=== PATIENT | male | born 1980 | race Caucasian/White ===

== ENCOUNTER 2019-05-19 16:18 | Outpatient (CLI) | payer BC, SELFPAY ==
[2019-05-19 16:53] LABS: Influenza Control Positive
== END 2019-05-19 16:19 | disposition home or self-care (01) ==
LOC: ANHLAB 16:20
PROVIDERS: Visit Provider Physician Assistant
DX: R68.89 Other general symptoms and signs (principal)
CPT/HCPCS: 87804

== ENCOUNTER 2019-12-22 11:06 | Outpatient (CLI) | payer BC, SELFPAY ==
--- NOTE | ~2019-12-22 | XR_ITS ---
XR lumbar spine 6V w bending 12/22/2019 11:41 Indication: Low back pain Procedure: 7 views of the lumbar spine including flexion/extension views Comparison: No prior studies for comparison. Findings: No significant alteration of alignment with flexion/extension. There is mild disc narrowing at L5-S1. Normal lumbar alignment. No evidence for spondylolisthesis. No acute fracture or traumatic malalignment. Impression: 1: Mild lumbar spondylosis. Reviewed, dictated and finalized at location A. Impression: 1: Mild lumbar spondylosis.
--- NOTE | ~2019-12-22 | XR_ITS ---
XR knee LT 3V 12/22/2019 11:40 INDICATION: Left knee pain PROCEDURE: 3 views left knee COMPARISON: No prior studies for comparison. FINDINGS: Fracture, dislocation or subluxation is not identified. No significant joint effusion. The soft tissues appear within normal limits. No foreign bodies are identified. IMPRESSION: 1: NO ACUTE BONE OR JOINT ABNORMALITY IDENTIFIED. Reviewed, dictated and finalized at location A.
== END 2019-12-22 11:07 | disposition home or self-care (01) ==
PROVIDERS: PCP Physician Assistant; Visit Provider Physician Assistant
DX: M25.562 Pain in left knee (principal); M47.896 Other spondylosis, lumbar region
CPT/HCPCS: 72114; 73562

== ENCOUNTER 2020-11-19 18:14 | Emergency (ER) | payer BC, SELFPAY ==
[2020-11-19 18:24] VITALS: BP 135/92; PULSE 95; RESP 18; TEMP 36.9; O2SAT 97
--- NOTE | 2020-11-19 18:28 | ED.GENADULT ---
HPI - General Adult General Chief complaint: Unspecified Stated complaint: poss covid Time Seen by Provider: 11/19/20 18:28 Source: patient and RN notes reviewed Mode of arrival: ambulatory Limitations: no limitations History of Present Illness HPI narrative: 40-year-old male presents with concern for secondhand Covid exposure. Reports he was exposed to his girlfriend whose grandmother tested positive for Covid. He reports the girlfriend does not have symptoms, he was concern for the possible exposure because he lives with his mother who is currently ill. He denies rhinorrhea, nasal congestion, sore throat, ear pain, headache, body aches, chills, fever, cough, loss of sense of taste or smell. MD complaint: Covid exposure Related Data Allergies Allergy/AdvReac Type Severity Reaction Status Date / Time No Known Allergies Allergy Mild Verified 11/19/20 18:29 Review of Systems Review of Systems: CONSTITUTIONAL: Denies malaise, chills, sweats, or fever. EYES: Denies visual changes, redness, or discharge. ENT: Denies rhinorrhea, congestion, sinus pain, otalgia or sore throat. CARDIOVASCULAR: Denies chest pain, palpitations, or edema. RESPIRATORY: Denies cough or dyspnea. GASTROINTESTINAL: Denies abdominal pain, nausea, vomiting, diarrhea SKIN: Denies rash or itching. MUSCULOSKELETAL: Denies myalgia. NEUROLOGIC: Denies headache. All systems reviewed & are unremarkable except as noted in HPI and below PMFSH Family History Family History Mother Family history of thyroid disease Father Family history of heart disease in male family member before age 55 Sibling Family history of heart disease in male family member before age 55 Other Family history of cardiovascular disease Social History Social History Smoking packs per day: 1 Smoking cigarettes per day: 20.0 Years smoked: 22 Smoking pack-years: 22.00 Smoking status: Current every day smoker Tobacco type: cigarettes Second hand tobacco smoke exposure: Yes Alcohol intake: current Substance use: never Comments At time of signature, agree with nursing past medical, surgical, social and family history. There is no relevant family history pertinent to the presenting complaint Exam Narrative: GENERAL: Well-appearing, well-nourished, and in no acute distress. HEAD: Normocephalic EYES: PERRLA, conjunctivae clear ENT: Nares clear, turbinates pink, no rhinorrhea or epistaxis. Mucous membranes moist. TM pearly mora with sharp light reflex bilaterally; no tragal tenderness. Oropharynx without erythema or lesions. Tonsils not enlarged and without exudate. NECK: Supple. CHEST: No respiratory distress. Clear to auscultation. No bony deformities, no asymmetry. Speaks in full sentences. HEART: Regular rate and rhythm. No murmur heard. SKIN: Warm, dry, no rash. NEURO: Alert and oriented x3. PSYCH: Normal mood and affect Course Course Emergency Course: Patient is aware of diagnosis, understands and agrees to treatment plan. Anticipatory guidance given. Patient agrees to follow-up as directed and is aware of reasons to seek care at the emergency department. Portions of this record may have been created with voice recognition software Vital Signs Vital signs: Vital Signs Temperature 98.5 F 11/19/20 18:24 Pulse Rate 95 11/19/20 18:24 Respiratory Rate 18 11/19/20 18:24 Blood Pressure 135/92 H 11/19/20 18:24 Pulse Oximetry 97 11/19/20 18:24 Temperature 98.5 F 11/19/20 18:24 Pulse Rate 95 11/19/20 18:24 Respiratory Rate 18 11/19/20 18:24 Blood Pressure 135/92 H 11/19/20 18:24 Pulse Oximetry 97 11/19/20 18:24 Reviewed. Medical Decision Making MDM Narrative Medical decision making narrative: Exam findings show no acute concerns or changes; patient is non-toxic appearing and is in no distress. Patient is appropriate
== END 2020-11-19 18:44 | disposition home or self-care (01) ==
PROVIDERS: Emergency Provider Nurse Practitioner; PCP Physician Assistant
DX: Z20.822 Contact with and (suspected) exposure to COVID-19 (principal); F17.210 Nicotine dependence, cigarettes, uncomplicated
CPT/HCPCS: 99211; G0463

== ENCOUNTER → 2020-11-20 08:18 | Outpatient (CLI) | payer BC, SELFPAY ==
[2020-11-21 01:23] LABS: SARS-CoV-2 RNA PCR Negative
== END ==
PROVIDERS: PCP Physician Assistant; Visit Provider Nurse Practitioner
DX: R68.89 Other general symptoms and signs (principal); Z20.822 Contact with and (suspected) exposure to COVID-19
CPT/HCPCS: C9803; U0003; U0005

== ENCOUNTER 2022-03-13 15:48 | Emergency (ER) | payer BC, SELFPAY ==
--- NOTE | 2022-03-13 15:56 | PC.NURSE ---
patient eloped from triage area. rn turned away from desk to put chart in rack and patient went out front door
== END 2022-03-13 15:56 | disposition left against medical advice (07) ==
PROVIDERS: PCP Physician Assistant
DX: Z53.21 Procedure and treatment not carried out due to patient leaving prior to being seen by health care provider (principal)
CPT/HCPCS: 99199

== ENCOUNTER 2022-04-09 16:19 | Emergency (ER) | payer BC, SELFPAY ==
[2022-04-09 16:27] VITALS: BP 142/95; PULSE 79; RESP 18; TEMP 36.9; O2SAT 100
--- NOTE | 2022-04-09 16:34 | ED.URI ---
HPI - URI/Sore Throat General Chief Complaint: Upper Respiratory Infection Stated Complaint: Headache,Sore Throat,Congestion Time Seen by Provider: 04/09/22 16:35 Source: patient and RN notes reviewed Mode of arrival: ambulatory Limitations: no limitations History of Present Illness HPI Narrative: 41 y/o male presented for c/o RAMIREZ, cough, congestion, and sweats for 3 days. Denies sick contacts. Taking Tylenol for symptoms. Denies sob, wheezing, n/v/d/f/c. Not covid vaccinated. Smokes 1PPD. MD elicited complaint: cough Related Data Home Medications Medication Instructions Recorded Confirmed multivitamin (Daily Multi-Vitamin 1 tablet PO DAILY 11/23/21 04/09/22 tablet) Allergies Allergy/AdvReac Type Severity Reaction Status Date / Time No Known Allergies Allergy Mild Verified 04/09/22 16:24 Review of Systems Review of Systems: per HPI [facility] Family History Family History Mother Family history of thyroid disease Father Family history of heart disease in male family member before age 55 Sibling Family history of heart disease in male family member before age 55 Other Family history of cardiovascular disease Social History Social History Smoking packs per day: 1 Smoking cigarettes per day: 20.0 Years smoked: 22 Smoking pack-years: 22.00 Smoking status: Current every day smoker Tobacco type: cigarettes Second hand tobacco smoke exposure: Yes Alcohol intake: current Substance use: never Exam Narrative: GENERAL: mildly ill-appearing, nontoxic EYES: PERRLA, conjunctivae clear ENT: Mucous membranes moist. TMs pearly mora with dull light reflex bilaterally; no tragal tenderness. Oropharynx normal without lesions or exudate CHEST: Clear to auscultation, breath sounds equal. No wheezing, rhonchi, rales, or stridor. No respiratory distress, speaks in full sentences. HEART: Regular rate and rhythm. SKIN: Warm, dry, no rash. NEURO: Alert and oriented x3. PSYCH: Normal mood and affect Course Course Emergency Course: Patient is aware of diagnosis, understands and agrees to treatment plan. Anticipatory guidance given. Patient agrees to follow-up as directed and is aware of reasons to seek care at the emergency department. Portions of this record may have been created with voice recognition software Level of Care: Express Care Visit Vital Signs Vital signs: Vital Signs Temperature 98.5 F 04/09/22 16:27 Pulse Rate 79 04/09/22 16:27 Respiratory Rate 18 04/09/22 16:27 Blood Pressure 142/95 H 04/09/22 16:27 Pulse Oximetry 100 04/09/22 16:27 Oxygen Delivery Room Air 04/09/22 16:27 Temperature 98.5 F 04/09/22 16:27 Pulse Rate 79 04/09/22 16:27 Respiratory Rate 18 04/09/22 16:27 Blood Pressure 142/95 H 04/09/22 16:27 Pulse Oximetry 100 04/09/22 16:27 Oxygen Delivery Room Air 04/09/22 16:27 reviewed MDM - URI/Sore Throat MDM Narrative Medical decision making narrative: COVID test result reviewed with patient. Declines flu testing. Advised supportive measures and signs/symptoms to go to the ER. Pt is appropriate for outpt treatment and f/u. Differential Diagnosis Differential diagnosis: Likely upper respiratory infection, sinusitis and viral infection Discharge Plan Discharge Clinical Impression: Viral infection Patient Disposition: Home, Self-Care Condition: Stable Instructions: Viral Syndrome (ED) Additional Instructions: Recommend Flonase spray and Zyrtec (or Claritin/Gretchen) over the counter Cough syrup may cause drowsiness; avoid driving or take it at night time. Tylenol 1000mg every 8 hours as needed for pain Symptomatic treatment includes: rest, fluids, and increase humidity of the air at home. Follow up with your primary care provider in 1 week. Go to the ER for worsening symptoms or concerns.
== END 2022-04-09 16:55 | disposition home or self-care (01) ==
PROVIDERS: Emergency Provider Nurse Practitioner Family; PCP Physician Assistant
DX: B34.9 Viral infection, unspecified (principal); Z20.822 Contact with and (suspected) exposure to COVID-19; F17.210 Nicotine dependence, cigarettes, uncomplicated
CPT/HCPCS: 87426; 99213; C9803; G0463